=== PATIENT | male | born 1995 | race Hispanic/Latino ===

== ENCOUNTER 2018-07-01 01:01 | Emergency (ER) | payer SELFPAY ==
[~2018-07-01] VITALS: Ht 195.6 cm; Wt 163.3 kg
--- OUTSIDE RECORDS SUMMARY | 2018-07-01 01:04 | XMS REPORT | Clinical Summary ---
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 Name Role Phone PCP Unavailable Allergies No Known Allergies Medications No known medications Active Problems Problem Noted Date Anxiety Chest tightness Cough Encounters Care Team Description Date Type Specialty Liz Neff MD Dark, Cedric K, MD Anxiety (Primary Dx); Cough; Chest tightness 06/29/2018 Emergency Emergency Medicine - 06/30/2018 06/29/2018 Travel after 06/30/2017 Social History Date Tobacco Use Types Packs/Day Years Used Former Smoker Alcohol Use Drinks/Week oz/Week Comments Not Currently Sex Assigned at Date Recorded Not on file Industry Job Start Date Occupation Not on file Not on file Not on file Travel End Travel History Travel Start No recent travel history available. Last Filed Vital Signs Time Taken Vital Sign Reading 06/29/2018 11:00 PM [employer] Blood Pressure 122/88 06/29/2018 11:00 PM [employer] Pulse 82 06/29/2018 11:00 PM [employer] Temperature 36.9 C (98.4 F) 06/29/2018 11:00 PM [employer] Respiratory Rate 18 06/29/2018 11:00 PM [employer] Oxygen Saturation 97% - Inhaled Oxygen - Concentration - Weight - - Height - - Body Mass Index - Plan of Treatment Care Team Description Date Type Specialty Marcia Castillo MD [address], [place], [place] [id number] new pt 07/06/2018 Office Visit Psychiatry Health Maintenance Due Date Last Done Comments IMM Influenza Seasonal 03/22/2018 Oct to August (>/=19 yrs) Procedures Comments Procedure Name Priority Date/Time Associated Diagnosis BMP POC Routine 06/29/2018 3:15 PM [employer] TROPONIN I POC Routine 06/29/2018 3:12 PM [employer] TROPONIN I POC Routine 06/29/2018 12:39 PM [employer] 12 LEAD EKG Routine 06/29/2018 12:23 PM [employer] XRAY CHEST 2 VIEWS STAT 06/29/2018 Cough 7:05 AM [employer] BMP POC Routine 06/29/2018 2:24 AM [employer] TROPONIN I POC Routine 06/29/2018 2:22 AM [employer] 12 LEAD EKG Routine 06/29/2018 2:17 AM [employer] after 06/30/2017 Results * BMP POC (06/29/2018 3:15 PM [employer]) Only the most recent of 2 results within the time period is included. CO2 POC 26Comment: Physician Notified 21 - 32 mmol/L [facility] 1 Chloride POC 103 98 - 107 mmol/L [facility] 1 Potassium POC 3.9 3.50 - 5.10 mmol/L [facility] 1 Sodium POC 142 136 - 145 mmol/L BT [facility] 1 Glucose POC 106 74 - 106 mg/dL BT [facility] 1 Urea Nitrogen 15 7 - 18 mg/dL BT [facility] POC 1 Creatinine POC 0.9 0.6 - 1.3 mg/dL BT [facility] 1 Calcium Ionized 1.21 1.15 - 1.29 mmol/L BT [facility] POC 1 Hemoglobin POC 16.7 14.0 - 18.0 g/dL BT [facility] 1 Hematocrit POC 49.0 40.0 - 54.0 % BT [facility] 1 GFR, Estimated >60 mL/min/1.73 m2 BT [facility] 1 GFR, Estim, >60 mL/min/1.73 m2 BT [facility] Afr-Am 1 Performing Organization Address City/State/Zipcode Phone Number [facility] 1 * TROPONIN I POC (06/29/2018 3:12 PM [employer]) Only the most recent of 3 results within the time period is included. 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 :[birth year] Requested By: LUIS LEE Order Number: [id number] Reading MD: Lupe Curran MD Measurements Intervals [place] Rate: 89 P:37 IN: 116 QRS: 29 QRSD: 101 T: 0 QT: 357 QTc:434 Interpretive Statements SINUS RHYTHM WITH SHORT IN INTERVAL POSSIBLE LEFT VENTRICULAR HYPERTROPHY NONSPECIFIC T-WAVE ABNORMALITY Electronically Signed On 06-29-2018 14:20:12 [employer] by Lupe Curran MD Performing Organization Address [facility] Phone Number SMS * XRAY CHEST 2 VIEWS (06/29/2018 7:05 AM [employer]) Impressions Performed At IMPRESSION: SMS No acute radiographic abnormality. Signed By: Tayo Shaikh DO, 06/29/2018 7:57 AM Narrative Performed At Frontal and lateral views of the chest:2 view(s) [facility] CLINICAL INDICATION:Shortness of breath COMPARISON: None DISCUSSION: Lines/tubes:None. Lungs: The lungs are well inflated and clear. No consolidative pneumonia or pulmonary edema. Pleura: No pleural effusion or pneumothorax. Heart and mediastinum: The heart and the mediastinum are unremarkable. Bones: No acute displaced fractures or aggressive osseous lesion. Procedure Note Interface, Rad/Mammog In - 06/29/2018 8:02 AM [employer] Frontal and lateral views of the chest: 2 view(s) CLINICAL INDICATION: Shortness of breath COMPARISON: None DISCUSSION: Lines/tubes: None. Lungs: The lungs are well inflated and clear. No consolidative pneumonia or pulmonary edema. Pleura: No pleural effusion or pneumothorax. Heart and mediastinum: The heart and the mediastinum are unremarkable. Bones: No acute displaced fractures or aggressive osseous lesion. IMPRESSION IMPRESSION: No acute radiographic abnormality. Signed By: Tayo Shaikh DO, 06/29/2018 7:57 AM Performing Organization Address City/[facility] Phone Number SMS * 12 LEAD EKG (06/29/2018 2:17 AM [employer]) 12 LEAD EKG FOR SMS [facility] Test Date:2018-06-29 Pat Name: GURJIT VIRGEN Department: 5520 Room: Gender: M Diesel Engine Mechanic Apprentice: [id number] :[birth year] Requested By: ANJU CAPONE Order Number: [id number] Reading MD: Thomas Cleveland M.D. Measurements Intervals [place] Rate: 93 P:72 IN: 151 QRS: 58 QRSD: 94 T:54 QT: 341 QTc:426 Interpretive Statements SINUS RHYTHM Reviewed by Electronically Signed On 06-29-2018 5:15:12 [employer] by Thomas Cleveland M.D. Performing Organization Address City/State/Zipcode Phone Number [facility] after 06/30/2017 Insurance Type Payer Benefit Subscriber ID Effective Phone Address Plan / Dates Group PENDING [employer]ORMY PENDING xxxxxxxxx [phone] [facility] (SELF-PAY) [place] [address] [facility] PRESUMED INDIGENT PRESUMED xxxxxxxxx 2018-3 INDIGENT
--- OUTSIDE RECORDS SUMMARY | 2018-07-01 01:04 | XMS REPORT ---
[facility] Address Unknown Phone Unavailable Care Team Providers Care Inorganic Chemistry Professor Name Role Phone Unavailable Unavailable Payers Payer Name Policy Type Policy Number Effective Date Expiration Date Problems This patient has no known problems. Allergies, Adverse Reactions, Alerts Allergy Name Allergy Type Status Severity Reaction(s) Onset Date Inactive Date Treating Clinician Comments No Known Allergies DA Active U 2017-02-20 00:00:00 Medications This patient has no known medications. Encounters Start Date/Time End Date/Time Encounter Type Admission Type Attending Clinicians Care Facility Care Department Encounter ID 2018-07-06 00:00:00 2018-07-06 00:00:00 Outpatient [facility] [id number] 2018-06-29 20:36:14 2018-06-29 20:36:14 Emergency [facility] [id number] 2018-06-29 06:59:32 2018-06-29 06:59:32 Emergency [facility] [id number]
[2018-07-01] MEDS ORDERED: LORAZEPAM INJ 2 MG/ML VIAL IV STA (01:26)
--- NOTE | 2018-07-01 02:07 | Diagnostic Imaging Report ---
CXR 2 VIEW - HOPD, Technique: CXR 2 VIEW - HOPD Comparison: None Clinical history: Chest pain DISCUSSION: Normal appearance of the heart, mediastinum, lungs and pleural spaces. IMPRESSION: No acute abnormality Signed by: Dr Jaqueline Sales MD on 07/01/2018 2:03 AM
[2018-07-01 02:13] VITALS: BP 145/81
== END 2018-07-01 02:24 | disposition home or self-care (01) ==
LOC: FSED 01:01
DX: R07.89 Other chest pain (principal); F41.1 Generalized anxiety disorder
CPT/HCPCS: 71046; 80048; 82553; 84484; 85025; 93005; 99284

== ENCOUNTER 2019-07-30 16:40 | Emergency (ER) | payer SELFPAY ==
[~2019-07-30] VITALS: Ht 198.1 cm; Wt 164.7 kg
[~2019-07-30 16:40] MED LIST: PREDNISONE20 MG PO; TESSALON PERLE100 MG PO
[2019-07-30] MEDS ORDERED: SODIUM CHLORIDE 0.9% 1000ML 1,000 ML IV STA (16:49)
[2019-07-30 17:33] LABS: BASOPHILS # (AUTO) 0.1 (0.0-0.1); BASOPHILS % 0.5 % (0.0-1.0); EOSINOPHILS # (AUTO) 0.2 (0.0-0.4); EOSINOPHILS % 1.5 % (0.0-6.0); HEMATOCRIT 44.9 % (38.2-49.6); HEMOGLOBIN 15.8 g/dL (14.0-18.0); LYMPHOCYTES # (AUTO) 2.9 (1.0-3.2); MEAN CORPUSCULAR HEMOGLOBIN 30.5 pg (28-32); MEAN CORPUSCULAR HGB CONC 35.2 g/dL (31-35); MEAN CORPUSCULAR VOLUME 86.7 fL (81-99); MONOCYTES # (AUTO) 0.9 (0.2-0.8); MONOCYTES % 7.4 % (4.4-11.3); NEUTROPHILS % 66.2 % (38.7-80.0); PLATELET COUNT 294 x10e3/uL (140-360); RED BLOOD COUNT 5.18 x10e6/uL (4.3-5.7); RED CELL DISTRIBUTION WIDTH 12.2 % (11.7-14.4)
--- NOTE | 2019-07-30 17:35 | Diagnostic Imaging Report ---
EXAMINATION: CT of the abdomen and pelvis without contrast. TECHNIQUE: Helical CT images of the abdomen and pelvis were performed from the lung bases to the lesser trochanters. No intravenous contrast was given per renal stone protocol. Coronal and sagittal reformatted images were obtained. Dose modulation, iterative reconstruction, and/or weight based adjustment of the mA/kV was utilized to reduce the radiation dose to as low as reasonably achievable. COMPARISON: None. CLINICAL HISTORY:Blood in urine DISCUSSION: ABSENCE OF INTRAVENOUS CONTRAST DECREASES SENSITIVITY FOR DETECTION OF FOCAL LESIONS AND VASCULAR PATHOLOGY. ABDOMEN/PELVIS: LOWER THORAX: Unremarkable. HEPATOBILIARY:Hepatic steatosis. No dilation. Gallbladder normal. SPLEEN: No splenomegaly. PANCREAS: No focal masses or ductal dilatation. ADRENALS: No adrenal nodules. KIDNEYS/URETERS: No hydronephrosis, stones, or solid mass lesions. PELVIC ORGANS/BLADDER: The bladder is normal. PERITONEUM/RETROPERITONEUM: No free air or fluid. LYMPH NODES: No intra-abdominal,retroperitoneal, pelvic or inguinal lymphadenopathy. VESSELS: Unremarkable. GI TRACT: No distention or wall thickening. Appendix normal. BONES AND SOFT TISSUES: No bony destructive lesions. No soft tissue abnormalities. IMPRESSION: No acute CT finding. Signed by: Dr. Escobar Kate M.D. on 07/30/2019 5:33 PM
[2019-07-30 17:46] LABS: ALANINE AMINOTRANSFERASE 79 IU/L (0-55); ALBUMIN 4.3 g/dL (3.5-5.0); ALBUMIN/GLOBULIN RATIO 1.3 (0.8-2.0); ALKALINE PHOSPHATASE 65 IU/L (40-150); ANION GAP 17.5 mmol/L (8-16); BLOOD UREA NITROGEN 8 mg/dL (7-26); BUN/CREATININE RATIO 9 (6-25); CALCIUM 9.4 mg/dL (8.4-10.2); CARBON DIOXIDE 20 mmol/L (22-29); CHLORIDE 105 mmol/L (98-107); CREATINE KINASE 205 IU/L (30-200); CREATININE, SERUM 0.94 mg/dL (0.72-1.25); EST GLOMERULAR FILTRATION RATE > 60 ML/MIN (60-); GLUCOSE 88 mg/dL (74-118); POTASSIUM 3.5 mmol/L (3.5-5.1); SODIUM 139 mmol/L (136-145)
[2019-07-30 18:01] LABS: CLARITY,URINE TURBID (CLEAR); COLOR,URINE RED (YELLOW); LEUKOCYTE ESTERASE ,URINE NEGATIVE (NEGATIVE); NITRITE,URINE NEGATIVE (NEGATIVE)
[2019-07-30 18:02] LABS: BILIRUBIN,URINE SMALL (NEGATIVE); KETONES,URINE TRACE (NEGATIVE); PROTEIN,URINE DIPSTICK 3+ (NEGATIVE); URINE UROBILINOGEN 0.2 mg/dL (0.2 - 1)
[2019-07-30 18:06] LABS: BACTERIA,URINE FEW /HPF; EPITHELIAL CELLS,URINE FEW /LPF; RBC,URINE >50 /HPF (0-5)
[2019-07-30] MEDS ORDERED: CEFTRIAXONE SOD 1 GM/NS 50 ML 50 ML IV ONE (18:30)
[2019-07-30] MEDS ORDERED: AZITHROMYCIN 250 MG TAB PO NR (18:30)
== END 2019-07-30 18:57 | disposition home or self-care (01) ==
LOC: ER 16:40
DX: R31.0 Gross hematuria (principal); Y04.0XXA Assault by unarmed brawl or fight, initial encounter; Y92.511 Restaurant or cafe as the place of occurrence of the external cause
CPT/HCPCS: 36415; 74176; 80053; 81001; 82550; 82553; 84484; 85025; 87086; 99284; J0696; J7030

== ENCOUNTER 2019-09-15 13:35 | Emergency (ER) | payer SELFPAY ==
[~2019-09-15] VITALS: Ht 198.1 cm; Wt 164.7 kg
== END 2019-09-15 14:03 | disposition home or self-care (01) ==
LOC: ER 13:35
DX: R05 Cough (principal); J40 Bronchitis, not specified as acute or chronic; K21.9 Gastro-esophageal reflux disease without esophagitis; I10 Essential (primary) hypertension; E11.9 Type 2 diabetes mellitus without complications; N28.9 Disorder of kidney and ureter, unspecified
CPT/HCPCS: 99282

== ENCOUNTER 2019-09-21 21:42 | Emergency (ER) | payer SELFPAY ==
[~2019-09-21] VITALS: Ht 198.1 cm; Wt 164.7 kg
== END 2019-09-21 22:22 | disposition left against medical advice (07) ==
LOC: ER 21:42
DX: R07.89 Other chest pain (principal)
CPT/HCPCS: 93005

== ENCOUNTER 2021-02-12 17:58 | Emergency (ER) | payer SELFPAY ==
[~2021-02-12] VITALS: Ht 195.6 cm; Wt 175.5 kg
[2021-02-12] MEDS ORDERED: KETOROLAC TROMETHAMINE 60 MG/2 ML VIAL IM ONE (18:15)
[2021-02-12 19:41] VITALS: BP 145/76
== END 2021-02-12 19:45 | disposition home or self-care (01) ==
LOC: ER 18:00
DX: R07.89 Other chest pain (principal); Y04.0XXA Assault by unarmed brawl or fight, initial encounter; F41.9 Anxiety disorder, unspecified
CPT/HCPCS: 71101; 99283; J1885

== ENCOUNTER 2021-07-30 14:20 | Emergency (ER) | payer SELFPAY ==
[~2021-07-30] VITALS: Ht 195.6 cm; Wt 175.5 kg
== END 2021-07-30 15:17 | disposition home or self-care (01) ==
LOC: ER 15:04
DX: S61.431A Puncture wound without foreign body of right hand, initial encounter (principal); W45.8XXA Other foreign body or object entering through skin, initial encounter; Y92.008 Other place in unspecified non-institutional (private) residence as the place of occurrence of the external cause; F41.9 Anxiety disorder, unspecified
CPT/HCPCS: 99283

== ENCOUNTER 2022-07-23 15:23 | Emergency (ER) | payer SELFPAY ==
[~2022-07-23] VITALS: Ht 195.6 cm; Wt 166.0 kg
[2022-07-23 15:52] LABS: CLARITY,URINE SL CLOUDY (CLEAR); COLOR,URINE YELLOW (YELLOW); KETONES,URINE NEGATIVE (NEGATIVE); LEUKOCYTE ESTERASE ,URINE NEGATIVE (NEGATIVE); NITRITE,URINE NEGATIVE (NEGATIVE); PROTEIN,URINE DIPSTICK NEGATIVE (NEGATIVE); URINE UROBILINOGEN 0.2 mg/dL (0.2 - 1)
[2022-07-23 16:06] LABS: BACTERIA,URINE MODERATE /HPF; EPITHELIAL CELLS,URINE MODERATE /LPF
[2022-07-23] MEDS ORDERED: CEFDINIR300 MG PO (16:16)
== END 2022-07-23 16:31 | disposition home or self-care (01) ==
LOC: ER 15:34
DX: R50.9 Fever, unspecified (principal); N39.0 Urinary tract infection, site not specified; M54.50 Low back pain, unspecified; F41.9 Anxiety disorder, unspecified
CPT/HCPCS: 81001; 99282

== ENCOUNTER 2022-07-30 10:52 | Emergency (ER) | payer SELFPAY ==
[~2022-07-30] VITALS: Ht 195.6 cm; Wt 166.0 kg
[~2022-07-30 10:52] MED LIST changes: +CEFDINIR300 MG PO
[2022-07-30] MEDS ORDERED: LIDOCAINE1 EACH EXT (11:09)
== END 2022-07-30 11:21 | disposition home or self-care (01) ==
LOC: ER 10:57
DX: M54.50 Low back pain, unspecified (principal); F41.9 Anxiety disorder, unspecified
CPT/HCPCS: 99282